=== PATIENT | female | born 1955 | race African-American/Black ===

== ENCOUNTER 2017-05-25 10:34 | Day surgery (SDC) | END 2017-05-25 14:44 | disposition home or self-care (01) ==

== ENCOUNTER 2017-06-18 07:31 | Inpatient (IN) | END 2017-06-29 18:55 | disposition home or self-care (01) | DRG 326 ==

== ENCOUNTER 2017-11-01 19:19 | Inpatient (IN) | END 2017-11-10 17:27 | disposition home or self-care (01) | DRG 377 ==

== ENCOUNTER 2018-02-02 01:24 | Inpatient (IN) | END 2018-02-14 15:45 | disposition hospice, home (50) | DRG 391 ==